=== PATIENT | female | born 1950 | race Caucasian/White ===

== ENCOUNTER 2018-12-20 16:39 | Emergency (ER) | payer BC, OTHER | END 2018-12-20 19:14 | disposition home or self-care (01) | LOC: FTE 16:39 | DX: M54.5 Low back pain (principal); R40.2412 Glasgow coma scale score 13-15, at arrival to emergency department; Z85.038 Personal history of other malignant neoplasm of large intestine | CPT/HCPCS: 20552; 99283-25 ==